=== PATIENT | female | born 1970 | race African-American/Black ===

== ENCOUNTER 2024-02-24 18:49 | Emergency (ER) | payer SELFPAY ==
[~2024-02-24] VITALS: Ht 172.7 cm; Wt 73.6 kg
[2024-02-24 18:53] VITALS: BP 169/84; PULSE 68; RESP 18; TEMP 98.5; O2SAT 100
== END 2024-02-25 00:30 | disposition left against medical advice (07) ==
LOC: ER 18:49
DX: M79.604 Pain in right leg (principal); M79.605 Pain in left leg; Z53.21 Procedure and treatment not carried out due to patient leaving prior to being seen by health care provider
CPT/HCPCS: 99281